=== PATIENT | male | born 1950 | race Caucasian/White ===

== ENCOUNTER 2016-07-01 16:11 | Emergency (ER) | payer SELFPAY ==
[~2016-07-01] VITALS: Ht 170.2 cm; Wt 81.6 kg
--- NOTE | 2016-07-01 16:11 | Emergency Room Report ---
History of Present Illness General Chief Complaint: Alcohol Intoxication Source: Patient, EMS Present Illness HPI Patient was found lying down floor. Patient is unknown onset . he reports drinking heavily earlier in the day. He denies new injuries or pain. History is limited by patient's level of intoxication. Allergies: Coded Allergies: UNABLE TO ASSESS (Unverified , 07/01/16) Patient History Reviewed Nursing Documentation: PMH: Agreed, PSxH: Agreed Nursing Documentation-PMH Past Medical History Deferred: Pt Cognitively Impaired Past Medical History: Deferred Review of Systems All Other Systems: limited - by mental status Physical Exam Vital Signs Date Time Temp Pulse Resp B/P Pulse Ox O2 Delivery O2 Flow Rate FiO2 07/01/16 16:02 97.7 76 18 111/68 100 Room Air Sp02 EP Interpretation: reviewed, normal General Appearance: normal inspection, no apparent distress, alert Head: atraumatic ENT: normal ENT inspection, hearing grossly normal, normal voice Neck: normal inspection, full range of motion, supple, no bony tend Respiratory: normal inspection, lungs clear, normal breath sounds, no respiratory distress, no retraction, no wheezing Cardiovascular #1: regular rate, rhythm, no edema Gastrointestinal: normal inspection, normal bowel sounds, non tender, soft, no guarding, no hernia Genitourinary: no CVA tenderness Musculoskeletal: normal inspection, back normal, normal range of motion Neurologic: responsive, other - slurred speech moves all extremities Psychiatric: normal inspection, judgement/insight normal, mood/affect normal Skin: normal inspection, normal color, no rash Medical Decision Making Diagnostic Impression: Primary Impression: Acute alcoholic intoxication ER Course Patient presented for altered mental status.Differential diagnosis included but was not limited to ischemic stroke, subarachnoid hemorrhage, hypoglycemia, spinal cord injury, neurodegenerative disorder, urinary tract infection, hypoxemia.Patient was noted to have initially confused mental status. Patient had gradual improvement of neurologic status. At the time of discharge patient was ambulatory without assistance. Patient was advised to stop drinking alcohol. And to followup with outpatient therapy for alcohol treatment.Patient presented for headache. Patient is advised to return if any worsening condition or if any changes in status that are concerning. Last Vital Signs Date Time Temp Pulse Resp B/P Pulse Ox O2 Delivery O2 Flow Rate FiO2 07/01/16 16:02 97.7 76 18 111/68 100 Room Air Status: improved Disposition: HOME, SELF-CARE Condition: Stable [place] Call Jul 01, 2016 16:11
[2016-07-01 16:13] VITALS: BP 111/68
[2016-07-01] MEDS ORDERED: Thiamine 100mg tab ORAL ONE (16:30)
[2016-07-01 18:29] VITALS: BP 115/65
[2016-07-01 21:21] VITALS: BP 120/68
[2016-07-01 21:28] VITALS: BP 120/68
== END 2016-07-01 21:25 | disposition home or self-care (01) ==
LOC: EDBD 16:11 → EMR 16:45
DX: F10.129 Alcohol abuse with intoxication, unspecified (principal)
CPT/HCPCS: 99284